=== PATIENT | male | born 1970 | race Caucasian/White ===

== ENCOUNTER → 2017-01-23 | Outpatient (CLI) | payer BC ==
[2017-01-23 09:33] LABS: BASO % 0.2 % (0.0-1.0); EOS # 0.2 10*3/uL (0.0-0.4); EOS % 2.6 % (1.0-4.0); HEMATOCRIT 46.9 % (42.0-52.0); HEMOGLOBIN 15.6 g/dl (14.0-18.0); LYMPH # 1.7 10*3/uL (1.3-4.4); LYMPH % 29.2 % (27.0-41.0); MEAN CELL VOLUME 88.2 fl (80.0-94.0); MEAN CORPUSCULAR HGB 29.3 pg (27.0-31.0); MEAN CORPUSCULAR HGB CONC 33.3 g/dl (33.0-37.0); MEAN PLATELET VOLUME 11.1 fl (9.6-12.3); MONO # 0.5 10*3/uL (0.1-1.0); MONO % 8.3 % (3.0-9.0); NEUT # 3.4 10*3/uL (2.3-7.9); NEUT % 59.3 % (47.0-73.0); PLATELET COUNT AUTOMATED 204 10*3/uL (130-400); RED BLOOD COUNT 5.32 10*6/uL (4.50-5.90); RED CELL DISTRI WIDTH 13.2 % (0-14.5); WHITE BLOOD COUNT 5.7 10*3/uL (4.8-10.8)
[2017-01-23 09:50] LABS: ALBUMIN 3.7 gm/dl (3.1-4.5); ALKALINE PHOSPHATASE 53 U/L (45-117); BILIRUBIN, TOTAL 0.4 mg/dl (0.2-1.0); BUN 19 mg/dl (7-24); CARBON DIOXIDE 26 mmol/L (21-32); CHLORIDE 109 mmol/L (98-107); CHOLESTEROL 219 mg/dL (<200); EST GLOM FILT AFRICAN AMERICAN > 60 ml/min; GLUCOSE 93 mg/dL (65-99); HDL CHOLESTEROL 50 mg/dl (40-60); LDL CHOLESTEROL 144 mg/dL (9-159); POTASSIUM 4.6 mmol/L (3.5-5.1); SGOT/AST 24 IU/L (3-35); SGPT/ALT 30 U/L (12-78); SODIUM 145 mmol/L (136-145); TOTAL PROTEIN 6.9 gm/dL (6.4-8.2); TRIGLYCERIDES 125 mg/dl (<150); VLDL CHOLESTEROL 25 mg/dL (6-40)
== END | disposition home or self-care (01) ==
LOC: LAB 08:41 → US 09:00
PROVIDERS: Nurse Practitioner Family
DX: K76.9 Liver disease, unspecified (principal); K28.4 Chronic or unspecified gastrojejunal ulcer with hemorrhage; K30 Functional dyspepsia

== ENCOUNTER → 2017-04-28 | Outpatient (CLI) | payer BC | END | disposition home or self-care (01) | LOC: NM 03-04 07:00 | DX: R10.9 Unspecified abdominal pain (principal); R11.0 Nausea ==

== ENCOUNTER → 2017-06-03 | Day surgery (SDC) | payer BC ==
[2017-05-31 14:13] VITALS: BP 123/66
[2017-05-31 15:09] LABS: BASO % 0.1 % (0.0-1.0); EOS # 0.2 10*3/uL (0.0-0.4); EOS % 2.3 % (1.0-4.0); HEMATOCRIT 45.2 % (42.0-52.0); HEMOGLOBIN 15.3 g/dl (14.0-18.0); LYMPH # 1.4 10*3/uL (1.3-4.4); LYMPH % 20.2 % (27.0-41.0); MEAN CELL VOLUME 88.3 fl (80.0-94.0); MEAN CORPUSCULAR HGB 29.9 pg (27.0-31.0); MEAN CORPUSCULAR HGB CONC 33.8 g/dl (33.0-37.0); MEAN PLATELET VOLUME 10.8 fl (9.6-12.3); MONO # 0.5 10*3/uL (0.1-1.0); MONO % 7.2 % (3.0-9.0); NEUT % 70.1 % (47.0-73.0); PLATELET COUNT AUTOMATED 207 10*3/uL (130-400); RED BLOOD COUNT 5.12 10*6/uL (4.50-5.90); RED CELL DISTRI WIDTH 12.9 % (0-14.5); WHITE BLOOD COUNT 7.1 10*3/uL (4.8-10.8)
[2017-05-31 15:13] LABS: BILIRUBIN NEGATIVE (NEGATIVE); BLOOD NEGATIVE (NEGATIVE); CLARITY CLEAR (CLEAR); COLOR YELLOW (YELLOW); GLUCOSE NEGATIVE (NEGATIVE); KETONE NEGATIVE (NEGATIVE); LEUKO ESTERASE NEGATIVE (NEGATIVE); NITRITE NEGATIVE (NEGATIVE); UROBILINOGEN 0.2 E.U./dl (0.2-1.0)
[2017-05-31 15:39] LABS: ALBUMIN 3.7 gm/dl (3.1-4.5); ALKALINE PHOSPHATASE 69 U/L (45-117); BILIRUBIN, DIRECT < 0.1 mg/dL (0.0-0.2); BUN 16 mg/dl (7-24); CHLORIDE 105 mmol/L (98-107); CREATININE 1.31 mg/dL (0.70-1.30); POTASSIUM 3.8 mmol/L (3.5-5.1); SGOT/AST 25 IU/L (3-35); SGPT/ALT 41 U/L (12-78); SODIUM 140 mmol/L (136-145); TOTAL PROTEIN 7.2 gm/dL (6.4-8.2)
[2017-05-31 16:18] LABS: EPITHELIAL CELLS 0-2; RBC 0-2 rbc/hpf (0-2)
[~2017-06-03] VITALS: Ht 175.2 cm; Wt 99.8 kg
[~2017-06-03] MED LIST: NORCO 5-325 TA1 EACH PO; PANTOPRAZOLE SO40 MG PO
--- NOTE | ~2017-06-03 | O ---
[place], [place] OPERATIVE NOTE NAME: TERRY LEIVA [facility] #: [id number] UNIT #: [id number] ROOM: DOCTOR: REMI PADILLA MD BIRTHDATE: [birth year] DOS: 06/03/2017 PREOPERATIVE DIAGNOSIS: Biliary dyskinesia. POSTOPERATIVE DIAGNOSIS: Biliary dyskinesia. PROCEDURE: Laparoscopic cholecystectomy. SURGEON: Remi Padilla MD BLUEPRINT BLOCKER: [id number]. ANESTHESIA: General with endotracheal intubation. INDICATIONS: This is a 46-year-old gentleman with a history of biliary dyskinesia, who is here for the above-mentioned procedure. The procedure and its complications were explained to the patient in detail preoperatively. Complications that were discussed included but were not limited to bleeding, infection, hematoma/seroma/abscess formation, prolonged postoperative pain, biloma formation, inadvertent injury to common bile duct, and incisional hernia formation. He agreed to proceed. DESCRIPTION OF PROCEDURE: After identifying the patient, the patient was brought to the operating suite and laid in the supine position. After induction of general anesthesia, the parts were painted and draped in the usual sterile fashion and a time-out procedure was called. An incision below the umbilicus in a transverse fashion was made. The skin and the subcutaneous tissue were incised in the line of the incision. The fascia was incised vertically and 2 stay sutures with 0 Vicryl were taken on either side. The peritoneum was opened and a 12 mm Drew port was introduced into the peritoneal cavity. Under direct vision, an epigastric incision of 10 mm and two 5 mm incisions were made in the right upper quadrant. Appropriate sized ports were introduced. The gallbladder was retracted superiorly and laterally. The cystic duct and the cystic artery were carefully dissected until the critical view of safety was obtained. Thereafter this, each of these structures were clipped 3 times and cut between the first and the second clip. The gallbladder was then removed from the bed of the gallbladder with the help of electrocautery. It was sent for histopathological diagnosis after inserting it into an EndoCatch bag. Thereafter, hemostasis was confirmed in the liver bed. The ports were removed and there was no bleeding seen. The umbilical port was also removed and the 2 stay sutures were tied together and an additional 0 Vicryl stitch was taken to close the fascia. Thereafter, the edges of the skin were infiltrated with 1% lidocaine and they were then approximated with the help of 4-0 Vicryl in a subcuticular running fashion. Dressings were given to all the incisions. The patient tolerated the procedure well. He was extubated uneventfully and brought back to the recovery room in stable fashion. There were no complications. Dr. Remi Padilla was present throughout the operating case. [place], [place] OPERATIVE NOTE NAME: TERRY LEIVA UNIT #: [id number] ROOM: DOCTOR: REMI PADILLA MD BIRTHDATE: [birth year] Remi Padilla MD CM:OPRECORD:OPERATIVE NOTE [id number] REMI PADILLA MD 06/05/17 0719 interface
[2017-06-03 07:35] VITALS: BP 136/74
[2017-06-03 10:15] VITALS: BP 130/55
[2017-06-03 10:30] VITALS: BP 129/64
[2017-06-03 10:45] VITALS: BP 141/92
[2017-06-03 11:00] VITALS: BP 138/80
[2017-06-03 11:22] VITALS: BP 118/79
== END | disposition home or self-care (01) ==
LOC: SDC 05-31 14:00
PROVIDERS: Surgery
DX: K82.8 Other specified diseases of gallbladder (principal); Z87.891 Personal history of nicotine dependence; K21.9 Gastro-esophageal reflux disease without esophagitis; Z98.890 Other specified postprocedural states